=== PATIENT | male | born 1975 | race African-American/Black ===

== ENCOUNTER 2018-01-16 02:36 | Emergency (ER) | payer OTHER | END 2018-01-16 04:50 | disposition other institution (70) | LOC: ED 02:36 | DX: Z02.89 Encounter for other administrative examinations (principal) ==

== ENCOUNTER 2018-01-16 02:36 | Emergency (ER) | payer SELFPAY ==
[~2018-01-16] VITALS: Ht 177.8 cm; Wt 83.9 kg
[2018-01-16 02:43] VITALS: Ht 177.8 cm; Wt 83.9 kg
[2018-01-16 03:21] LABS: BASOPHIL % 0.4 % (0-2); PLATELET COUNT 333 x10^3mcL (130-400); RED CELL DISTRIBUTION WIDTH 13.7 % (11.5-14.5)
[2018-01-16 03:40] LABS: CALCIUM 9.2 mg/dL (8.5-10.1); CARBON DIOXIDE 26.7 mmol/L (21-32); CREATININE SERUM 1.4 mg/dL (0.7-1.3); POTASSIUM SERUM 3.7 mmol/L (3.5-5.1)
[2018-01-16 03:44] LABS: ALBUMIN 4.2 g/dL (3.4-5.0); BILIRUBIN TOTAL 0.57 mg/dL (0.20-1.00)
[2018-01-16 03:54] LABS: TOTAL PROTEIN, SERUM 8.7 g/dL (6.4-8.2)
[2018-01-16 04:50] VITALS: BP 123/78
== END 2018-01-16 04:50 | disposition other institution (70) ==
LOC: EDBD 02:36 → ED 02:36
PROVIDERS: Emergency Medicine
DX: M54.2 Cervicalgia (principal); S20.412A Abrasion of left back wall of thorax, initial encounter; V49.9XXA Car occupant (driver) (passenger) injured in unspecified traffic accident, initial encounter; Y93.89 Activity, other specified; Y92.89 Other specified places as the place of occurrence of the external cause; Y99.8 Other external cause status
CPT/HCPCS: 36415; 90715; G0480; J1885